=== PATIENT | female | born 1955 | race Caucasian/White ===

== ENCOUNTER → 2018-06-17 18:32 | Emergency (ER) | payer BC ==
--- NOTE | 2018-06-17 21:12 | ED ---
Lower Extremity - HPI Summary HPI Summary: This patient is a 62 year old F presenting to [facility], referred from [facility] urgent care, with a chief complaint of LLE pain and swelling since 06-14-18. She states she had swelling in the left knee yesterday that resolved and moved into the calf yesterday. The patient rates the pain 2/10 in severity. Symptoms aggravated by nothing. Symptoms alleviated by nothing .Patient reports mild LLE pain. Patient denies injury, long travel, CP, and SOB. Pt is a healthy individual and does not take any home medications. States she also does not have a PCP. No hx of blood clots or CA in the pt. A cousin has hx of blood clots. - History of Current Complaint Chief Complaint: EDExtremityLower Stated Complaint: LT LEG SWELLING Time Seen by Provider: 06/17/18 20:35 Hx Obtained From: Patient, Other: - [facility] urgent care Mechanism Of Injury: Other - none Onset of Pain: Days, Prior to Arrival Onset/Duration: Days Severity Initially: Mild Severity Currently: Mild Pain Intensity: 2 Pain Scale Used: 0-10 Numeric Timing: Constant, Lasting Days - 3 Location: Is Discrete @ - LLE Character Of Pain: Sharp Associated Signs And Symptoms: Positive: Swelling Aggravating Factor(s): Nothing Alleviating Factor(s): Nothing Able to Bear Weight: Yes - Allergies/Home Medications Allergies/Adverse Reactions: Allergies Allergy/AdvReac Type Severity Reaction Status Date / Time No Known Allergies Allergy Verified 06/17/18 18:38 PMH/Surg Hx/FS Hx/Imm Hx Previously Healthy: Yes Cardiovascular History: Denies: Hx Atrial Fibrillation, Hx Congestive Heart Failure, Hx Deep Vein Thrombosis, Hx Hypotension GI History: Denies: Hx Gastroesophageal Reflux Disease Neurological History: Denies: Hx CVA, Hx Dementia, Hx Headaches, Hx Transient Ischemic Attacks (TIA ) - Surgical History Surgery Procedure, Year, and Place: none Infectious Disease History: No Infectious Disease History: Denies: Traveled Outside the [place] in Last 30 Days - Family History Known Family History: Positive: Blood Disorder - clots, cousin - Social History Lives: With Family Alcohol Use: Rare Substance Use Type: Reports: None Hx Tobacco Use: No Smoking Status (MU): Never Smoked Tobacco Review of Systems Constitutional: Negative Cardiovascular: Negative Respiratory: Negative Gastrointestinal: Negative Positive: Other - LLE pain and swelling Skin: Negative Neurological: Negative Psychological: Normal All Other Systems Reviewed And Are Negative: Yes Physical Exam - Summary Physical Exam Summary: Appearance: Well-appearing, moderate pain distress, well-nourished Skin: Warm, color reflects adequate perfusion, dry Head: Normal Head/Face inspection, atraumatic Eyes: Conjunctiva clear ENT: Normal inspection Neck: Supple, no nodes, no JVD Respiratory: Lungs clear, normal breath sounds, no respiratory distress Cardio: RRR, No murmur, pulses normal, brisk capillary refill Abdomen: Soft, nontender Bowel sounds: Present Musculoskeletal: Strength Intact/ROM intact, Swelling in the LLE and left knee. Tender to palpation in the left posterior calf. Psychological: Normal Neuro: Alert, muscle tone normal, no focal deficit Triage Information Reviewed: Yes Vital Signs On Initial Exam: Initial Vitals Temp Pulse Resp BP Pulse Ox 97.8 F 77 16 124/76 99 06/17/18 18:37 06/17/18 18:37 06/17/18 18:37 06/17/18 18:37 06/17/18 18:37 Vital Signs Reviewed: Yes Diagnostics - Vital Signs Vital Signs Temp Pulse Resp BP Pulse Ox 06/17/18 20:38 97.0 F 68 16 120/71 100 06/17/18 18:37 97.8 F 77 16 124/76 99 - Laboratory Lab Statement: Any lab studies that have been ordered have been reviewed, and results considered in the medical decision making process. - Ultrasound No standard instances Ultrasound Interpretation Completed By: Radiologist - US Venous Doppler reveals , per radiologist, 1. No DVT. 2. Complex 4.8 x 2 x 3.3 cm fluid collection probably complex Greene's cyst left popliteal fossa. Suspect this has ruptured, with infiltrative extension of the fluid down to level of the distal calf. ED physician has reviewed this radiology report. Re-Evaluation - Re-Evaluation First Eval Re-Evaluation Time: 22:10 Change: Unchanged Comment: discussed Greene's cyst rupture with pt. Advised knee immobilizer and crutches. Pt agrees to treatment and follow up. States she will take OTC ibuprofen. Lower Extremity Course/Dx - Course Course Of Treatment: 62 yo F with several day hx of knee pain and swelling, now radiating to left calf. No CP, SPB. Pt on no medications. No hx clots. Assessment/Plan: US Venous Doppler reveals, per radiologist, 1. No DVT. 2. Complex 4.8 x 2 x 3.3 cm fluid collection probably complex Greene's cyst. left popliteal fossa. Suspect this has ruptured, with infiltrative extension of. the fluid down to level of the distal calf. - Diagnoses Differential Diagnosis/HQI/PQRI: Positive: Cellulitis, Contusion, DVT, Strain, Other - Greene's cyst Provider Diagnoses: Greene's cyst, ruptured, Acute pain of left lower extremity Discharge - Sign-Out/Discharge Documenting (check all that apply): Patient Departure - home - Discharge Plan Condition: Stable Disposition: HOME Patient Education Materials: Crutch Instructions (ED), Bakers Cyst (ED), Knee Immobilizer (ED) Referrals: [facility] [Outside] [facility] REFERRAL [Outside] Moncho Burns MD [Medical Doctor] - (as soon as possible ) Additional Instructions: We have given you a copy of the ultrasound of your left leg. You will need definite follow up with Dr. Burns from orthopedics in the next 1-2 days. Wear the knee immobilizer until seen by Dr. Burns (or orthopedist) and use the crutches. Take ibuprofen for pain and the inflammation:600mg three times a day. Return to the ER if you have new or worsening symptoms. - Billing Disposition and Condition Condition: STABLE Disposition: Home - Attestation Statements Document Initiated by Wilder: Yes Documenting Scribe: Frandy Samaniego Provider For Whom Wilder is Documenting (Include Credential): Dr. Nida Gutierrez MD Scribe Attestation: Frandy Case scribed for Dr. Nida Gutierrez MD on 06/18/18 at 0246. Scribe Documentation Reviewed: Yes Provider Attestation: The documentation as recorded by the Frandy henson accurately reflects the service I personally performed and the decisions made by me, Dr. iNda Gutierrez MD
--- NOTE | 2018-06-17 21:57 | RAD ---
EXAM: US Duplex Left Lower Extremity Veins CLINICAL HISTORY: 62 years old, female; Signs and symptoms; Edema, localized; Lower extremity, left; Additional info: Left leg pain, swelling TECHNIQUE: Real-time duplex ultrasound scan of the left lower extremity veins integrating B-mode two-dimensional vascular structure, Doppler spectral analysis, color flow Doppler imaging and compression. COMPARISON: No relevant prior studies available. FINDINGS: Deep veins: No DVT. Superficial veins: Unremarkable. No thrombus in the visualized great saphenous vein. Soft tissues: Complex 4.8 x 2 x 3.3 cm fluid collection probably complex Greene's cyst of up to fossa. Suspect this has ruptured, with infiltrative extension of the fluid down to level of the distal calf. IMPRESSION: 1. No DVT. 2. Complex 4.8 x 2 x 3.3 cm fluid collection probably complex Greene's cyst left popliteal fossa. Suspect this has ruptured, with infiltrative extension of the fluid down to level of the distal calf. To contact [facility] with a general question: [facility] - [phone] For direct physician to physician contact: Physician Hotline - [phone] [facility] ([facility] Facility ID #[id number])
[2018-06-17 22:28] VITALS: BP 136/60
== END | disposition home or self-care (01) ==
LOC: ED 18:32
DX: M66.0 Rupture of popliteal cyst (principal); M79.89 Other specified soft tissue disorders; M79.605 Pain in left leg
CPT/HCPCS: 99282

== ENCOUNTER 2019-06-07 10:33 | Emergency (ER) | payer BC ==
[2019-06-07] MEDS ORDERED: Tetan/Diph/Pertus SYR(Tdap)* 0.5 ML SYR(BOOSTRIX) use SYR contains LATEX IM ONE (12:09)
[2019-06-07] MEDS ORDERED: Cephalexin CAP* 500 MG PO ONE (13:16)
[2019-06-07 13:43] VITALS: BP 126/72
--- NOTE | 2019-06-07 16:51 | ED ---
Laceration/Wound HPI - HPI Summary HPI Summary: 63 year old female presents to the ED with a chief complaint of a laceration on her left great toe secondary to an accident with a chainsaw yesterday. She rates the pain a 4/10 in severity. She has feeling and can move her toe. She feels nauseous. She rarely drinks, and does not do recreational drugs or smoke tobacco. Patient has not gotten a tetanus shot in many years. Medications reviewed. Allergies noted. - History of Current Complaint Stated Complaint: LACERATION TO LEFT FOOT PER PT Time Seen by Provider: 06/07/19 12:03 Hx Obtained From: Patient Mechanism of Injury: Sharp/Blunt Trauma Onset/Duration: Sudden Onset, Still Present Aggravating: Nothing Alleviating: Nothing Onset Severity: Severe Current Severity: Moderate Pain Intensity: 4 Pain Scale Used: 0-10 Numeric Associated Signs & Symptoms: Pain Related Hx: Recent Trauma - Chainsaw to her toe - Allergy/Home Medications Allergies/Adverse Reactions: Allergies Allergy/AdvReac Type Severity Reaction Status Date / Time No Known Allergies Allergy Verified 06/07/19 10:40 PMH/Surg Hx/FS Hx/Imm Hx Cardiovascular History: Denies: Hx Atrial Fibrillation, Hx Congestive Heart Failure, Hx Deep Vein Thrombosis, Hx Hypotension GI History: Denies: Hx Gastroesophageal Reflux Disease Neurological History: Denies: Hx CVA, Hx Dementia, Hx Headaches, Hx Transient Ischemic Attacks (TIA ) - Surgical History Surgery Procedure, Year, and Place: none Infectious Disease History: No Infectious Disease History: Denies: Traveled Outside the [place] in Last 30 Days - Family History Known Family History: Positive: Blood Disorder - clots, cousin - Social History Alcohol Use: Rare Substance Use Type: Reports: None Hx Tobacco Use: No Smoking Status (MU): Never Smoked Tobacco Review of Systems Positive: Nausea Positive: Other - Laceration on left great toe. All Other Systems Reviewed And Are Negative: Yes Physical Exam - Summary Physical Exam Summary: Constitutional: Well-developed, Well-nourished, Alert. (-) Distressed Skin: Warm, Dry HENT: Normocephalic; Atraumatic Eyes: Conjunctiva normal Neck: Musculoskeletal ROM normal neck. (-) JVD, (-) Stridor, (-) Tracheal deviation Cardio: Rhythm regular, rate normal, Heart sounds normal; Intact distal pulses; Radial pulses are 2+ and symmetric. (-) Murmur Pulmonary/Chest wall: Effort normal. (-) Respiratory distress, (-) Wheezes, (-) Rales Abd: Soft, (-) tenderness, (-) Distension, (-) Guarding, (-) Rebound Musculoskeletal: (-) Edema. Left great toe with full ROM, macerated tissue on the distal toe and toenail. No obvious bone exposed, no active bleeding. Lymph: (-) Cervical adenopathy Neuro: Alert, Oriented x3 Psych: Mood and affect Normal Triage Information Reviewed: Yes Vital Signs On Initial Exam: Initial Vitals Temp Pulse Resp BP Pulse Ox 98.6 F 93 14 129/73 99 06/07/19 10:36 06/07/19 10:36 06/07/19 10:36 06/07/19 10:36 06/07/19 10:36 Vital Signs Reviewed: Yes Procedures - Sedation Patient Received Moderate/Deep Sedation with Procedure: No Diagnostics - Vital Signs Vital Signs Temp Pulse Resp BP Pulse Ox 06/07/19 13:41 97.8 F 84 18 126/72 99 06/07/19 10:36 98.6 F 93 14 129/73 99 - Laboratory Lab Statement: Any lab studies that have been ordered have been reviewed, and results considered in the medical decision making process. - Radiology Toe XR Radiology Interpretation Completed By: Radiologist Summary of Radiographic Findings: Toe XR shows a fracture of the tuft of the distal phalanx. An ED physician has reviewed this report. Laceration Repair Course/Dx - Course Course Of Treatment: Patient is here 1 day after taking a chainsaw to her great toe. Patient had no active bleeding upon arrival. Patient had a digital block performed with debridement of her wound. Patient had a pressure dressing applied. Patient given tetanus. Patient had nitroglycerin showed a tuft fracture. Patient started on Keflex per orthopedic surgery and will follow up with Dr. Yap. - Clinical Impression Provider Diagnoses: Laceration of toe, Toe fracture - Physician Notifications Discussed Care Of Patient With: Jagdish Yap - Orthopedics Time Discussed With Above Provider: 12:02 - Discussed patient with Dr. Fracisco MD. He advised to give patient a post-op shoe and antibiotics. Instructed by Provider To: Other - Discussed patient with Dr. Fracisco MD. He advised to give patient a post-op shoe and antibiotics. Discharge ED - Sign-Out/Discharge Documenting (check all that apply): Patient Departure - discharge - Discharge Plan Condition: Stable Disposition: HOME Prescriptions: Cephalexin CAP* [Keflex CAP*] 500 mg PO TID 7 Days #21 cap Patient Education Materials: Toe Fracture (ED) Referrals: Session Sunny PRYOR [Primary Care Provider] - Jagdish Yap MD [Medical Doctor] - Additional Instructions: Please use your postop shoe Please use the antibiotics as prescribed Please use Tylenol and ibuprofen for pain please follow-up with Dr. Yap in one to 3 days - Billing Disposition and Condition Condition: STABLE Disposition: Home - Attestation Statements Document Initiated by Scribe: Yes Documenting Scribe: Dell Shirley Provider For Whom Wilder is Documenting (Include Credential): Ozzie Santoro MD. Scribe Attestation: Dell Case, scribed for Ozzie Santoro MD. on 06/07/19 at 1851. Scribe Documentation Reviewed: Yes Provider Attestation: The documentation as recorded by the scribeDell accurately reflects the service I personally performed and the decisions made by Ozzie rhoades MD. Status of Scribe Document: Viewed
== END 2019-06-07 13:41 | disposition home or self-care (01) ==
LOC: ED 10:33
DX: S92.425B Nondisplaced fracture of distal phalanx of left great toe, initial encounter for open fracture (principal); W29.3XXA Contact with powered garden and outdoor hand tools and machinery, initial encounter; Y92.9 Unspecified place or not applicable; Z23 Encounter for immunization; R11.0 Nausea
CPT/HCPCS: 11000; 90471; 90715; 99282; A9270-GY